=== PATIENT | female | born 1970 | race Hispanic/Latino ===

== ENCOUNTER 2020-09-05 18:29 | Emergency (ER) | payer SELFPAY ==
[2020-09-05] MEDS ORDERED: MORPHINE 4 MG/ML SYR ONE (19:58)
[2020-09-05] MEDS ORDERED: ONDANSETRON 4 MG/2 ML VIAL ONE (19:58)
[2020-09-05] MEDS ORDERED: NA CHLORIDE 0.9% 1,000 ML ONE (19:58)
[2020-09-05 20:08] LABS: Absolute Lymphocytes (CBC) 2.1 K/uL (0.7-4.9); Basophils % 0.7 % (0-1.3); Hematocrit 31.5 % (36.0-45.0); Lymphocytes % 17.7 % (15.3-44.8); MPV 9.2 fL (7.6-11.3); RBC Red Blood Cell Count 3.95 M/uL (3.86-4.86)
[2020-09-05 20:24] LABS: ALT/SGPT 15 U/L (12-78); AST/SGOT 17 U/L (15-37); Albumin 2.3 g/dL (3.4-5.0); Alkaline Phosphatase 104 U/L (45-117); BUN Blood Urea Nitrogen 11 mg/dL (7-18); Bicarbonate 23 mmol/L (21-32); Bilirubin Direct 0.1 mg/dL (0-0.2); Bilirubin Total 0.3 mg/dL (0.2-1.0); Glucose Level 235 mg/dL (74-106); Lipase 116 U/L (73-393); Protein, Total 8.5 g/dL (6.4-8.2); Sodium Level 134 mmol/L (136-145)
--- NOTE | 2020-09-05 21:30 | RAD REPORT ---
EXAM DESCRIPTION: CT - Abdomen Pelvis W Contrast - 09/05/2020 8:45 pm CLINICAL HISTORY: Post operative wound drainage;Abd pain, 1 or 2 abdominal surgical procedure is 4-5 weeks ago, procedure performed not specified COMPARISON: No comparisons TECHNIQUE: Biphasic, helical CT imaging of the abdomen and pelvis was performed following 100 ml non -ionic IV contrast. No oral contrast administered. All CT scans are performed using dose optimization technique as appropriate and may include automated exposure control or mA/KV adjustment according to patient size. FINDINGS: No suspicious findings in the lung bases. The liver, spleen, and pancreas show no suspicious findings. Gallbladder and biliary tree are also wi thout suspicious finding. Symmetric renal function is seen with no hydronephrosis or suspicious renal mass. No pyelonephritis o r acute parenchymal process. Contracted urinary bladder shows no suspicious finding. No adrenal abnor malities. No stomach abnormality. No acute small bowel finding identified. No uterine abnormality. Normal ovaries are difficult to identify due to subsequently detailed finding s. A primary ovarian process is not suspected. The surgical procedure performed is not known. Patient has a mobile cecum which is positioned in the anterior mid abdomen near the umbilicus. In the midline anterior abdominal wall there is an abnormal air in soft tissue collection that extends from the umbilicus inferiorly 8 cm. This is 4 x 2 cm in tr ansverse diameter. The soft tissue attenuation material within this large collection may be stool. Th is is in close proximity to the mobile cecum and there is soft tissue attenuation between this abdomi nal wall abscess collection and the cecum. A fistula tract is suspected. A 2.5 centimeter air and flu id collection is present in the subcutaneous fatty tissues approximately 3 cm inferior to the umbilic us. There is edematous/inflammatory stranding throughout the subcutaneous fatty tissues of the lower abdomen. A 7.5 centimeter diameter thick walled air and fluid collection is present in the left lower quadrant abutting the sigmoid colon. There is pronounced diverticulosis. The sigmoid colon abutting this mass is compressed and displaced anteriorly. Addition to this large air-fluid collection there are severa l additional contained extraluminal air collections anteriorly positioned. This is believed to be a l arge abscess rather than dilated colon. There is soft tissue between this large fluid collection in t he mobile cecum. There may be a posteriorly directed fistula tract as well between the cecum and this collection. No free air is identified. No other abscess collections identified. No mass or bulky lymphadenopathy otherwise noted. No suspicious bony findings. IMPRESSION: An abscess is present in the midline abdominal wall extending from the umbilicus inferio rly. This measures 8 cm CC x 4 cm TR x 2 cm AP appears to contain stool. A large 7.5 centimeter left lower quadrant abscess is present along the superior margin of the sigmoi d colon. The patient has a normal variant mobile cecum configuration. The cecum is in the anterior midline abd omen position between the abdominal wall abscess in the left lower quadrant abscess. There is soft ti ssue attenuation between the cecum and the each abscess collection suspected to be fistula tracts. Patient has prominent sigmoid diverticulosis. The suspected sigmoid abscess is believed to be an infe cted collection rather than dilated bowel. Patient also has a small 2.5 centimeter abscess in the superficial subcutaneous fat in the midline ap proximately 3 cm inferior to the umbilicus. Several small contained extraluminal air collections are present in the peritoneal fat anterior to th e left lower quadrant collection.
[2020-09-05] MEDS ORDERED: NA CHLORIDE 0.9% 250 ML ONE (22:53)
[2020-09-05] MEDS ORDERED: PIPER/TAZO/NS 3.375gm 3.375 GM/100 ML BAG ONE (22:53)
[2020-09-05] MEDS ORDERED: VANCOMYCIN 1 GM/VIAL ONE (22:53)
[2020-09-05 23:28] LABS: Urine Blood Negative (Negative); Urine Glucose Negative (Negative); Urine Protein Negative (Negative); Urine Specific Gravity <=1.005 (1.005-1.030)
--- NOTE | 2020-09-05 23:33 | ER ---
Nurse's Notes [facility] Name: Sabina Garza Age: 50 yrs Sex: Female : 1970 Arrival Date: 09/05/2020 Time: 18:29 Bed 15 Private MD: Diagnosis: Post Surgical Complication, Abdominal Abscess, Fistula Presentation: 09/05 18:37 Chief complaint: Patient states: Had 2 abd surgeries in the past 4-5 weeks. One site to ll1 L side of abdomen never healed. Drains fluid that has a foul odor for at least 3 weeks. Coronavirus screen: Client denies travel out of the [place] in the last 14 days. At this time, the client does not indicate any symptoms associated with coronavirus-19. Ebola Screen: Patient denies travel to an Ebola-affected area in the 21 days before illness onset. Initial Sepsis Screen: Does the patient meet any 2 criteria? HR > 90 bpm. No. Patient's initial sepsis screen is negative. Does the patient have a suspected source of infection? Yes: Acute abdominal pain. Risk Assessment: Do you want to hurt yourself or someone else? Patient reports no desire to harm self or others. Onset of symptoms was August 18, 2020. 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 - Social history:: Smoking status: Patient denies any tobacco usage or history of. Screenin:34 Abuse screen: Denies threats or abuse. Denies injuries from another. Nutritional zb screening: No deficits noted. Tuberculosis screening: No symptoms or risk factors identified. Fall Risk None identified. Assessment: 19:00 General: Appears in no apparent distress. uncomfortable, obese, Behavior is anxious. zb Pain: Complains of pain in umbilical area Pain currently is 0 out of 10 on a pain scale. at worst was 7 out of 10 on a pain scale. Quality of pain is described as sharp, Pain began 1-2 weeks Is intermittent. Neuro: Level of Consciousness is awake, alert, obeys commands, Oriented to person, place, time, situation. Cardiovascular: Heart tones S1 S2 present Patient's skin is warm and dry. Respiratory: Airway is patent Breath sounds are clear bilaterally. GI: Abdomen is obese, discolored, wound noted. Bowel sounds present X 4 quads. Reports lower abdominal pain, cramping, nausea. Derm: Skin is healthy with good turgor, Skin is dry, Skin is normal, Wound noted umbilical area Wound is yellow, malodorous , purulent drainage, tunneling present. Derm: Wound noted. Musculoskeletal: Circulation, motion, and sensation intact. Range of motion: intact in all extremities. 20:00 Reassessment: Patient appears in no apparent distress at this time. Patient and/or zb family updated on plan of care and expected duration. Pain level reassessed. Patient is alert, oriented x 3, equal unlabored respirations, skin warm/dry/pink. 20:43 Reassessment: patent currently in CT. zb 21:20 Reassessment: Patient appears in no apparent distress at this time. Patient and/or zb family updated on plan of care and expected duration. Pain level reassessed. Patient is alert, oriented x 3, equal unlabored respirations, skin warm/dry/pink. wound cleaned. dressing packed wet-dry covered with abd padding. C/D/I. 22:30 Reassessment: Patient appears in no apparent distress at this time. Patient and/or zb family updated on plan of care and expected duration. Pain level reassessed. Patient is alert, oriented x 3, equal unlabored respirations, skin warm/dry/pink. bed clean, patient family member at bedside. 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 09/06 00:55 Reassessment: Patient and/or family updated on plan of care and expected duration. Pain ea level reassessed. Patient is alert, oriented x 3, equal unlabored respirations, skin warm/dry/pink. EMS at facility pt refused transfer reported she wanted to leave AMA and was not going to be transfered. Vital Signs: 09/05 18:37 BP 140 / 89; Pulse 100; Resp 18; Temp 98.9; Pulse Ox 97% ; Weight 108.86 kg; Height 5 ll1 ft. 2 in. (157.48 cm); Pain 5/10; 20:33 BP 126 / 77; Pulse 96; Resp 16; Pulse Ox 97% ; zb 21:30 BP 134 / 53; Pulse 85; Resp 16; Pulse Ox 100% on R/A; zb 22:20 BP 127 / 71; Pulse 90; Resp 16; Pulse Ox 100% on R/A; zb 23:20 BP 140 / 93; Pulse 88; Resp 16; Pulse Ox 100% on R/A; zb 18:37 Body Mass Index 43.90 (108.86 kg, 157.48 cm) ll1 ED Course: 18:29 Patient arrived in ED. am2 18:37 Arm band placed on Patient placed in an exam room, on a stretcher. ll1 18:39 Triage completed. ll1 18:43 Sosa Rizo, DEAN is Primary Nurse. zb 19:01 Roddy Velazco MD is Attending Physician. mh7 20:35 Patient has correct armband on for positive identification. Placed in gown. Bed in low zb position. Call light in reach. phototypesetting equipment monitor on. Pulse ox on. 20:44 CT Abd/Pelvis - IV Contrast Only In Process Unspecified. EDMS 22:19 initiated a transfer with Brenda Kay from [facility]. mw2 22:[address] Millan the hospitalist from [facility]. mw2 23:14 Brenda Kay called back to inform us that we are waiting for a bed assignment. mw2 23:39 administrative approval given by Brenda Kay/ patient has been accepted to [address] bed 529/ Dr. Millan accepted the patient in transfer/ report to be called to [phone]. 09/06 00:56 IV discontinued, intact, bleeding controlled, No redness/swelling at site. Pressure ea dressing applied. Administered Medications: 09/05 19:51 Drug: morphine 4 mg {Note: RASS +0.} Route: IVP; Site: left antecubital; zb 19:51 Drug: Zofran (Ondansetron) 4 mg Route: IVP; Site: left antecubital; zb 19:52 Drug: NS 0.9% 1000 ml Route: IV; Rate: 1000 ml; Site: left antecubital; zb 23:14 Drug: Zosyn (piperacillin-tazobactam) 3.375 grams Route: IVPB; Infused Over: 60 mins; zb Site: left antecubital; Outcome: 23:32 ER care complete, transfer ordered by MD. galan 09/06 00:55 AMA AMA form signed ea Condition: stable 00:56 Patient left the ED. ea Signatures: Dispatcher [employer] EDMS Madison Blanco RN Christine Chaparro Beverley Giordano RN RN ea Westbrook, MyKena 2 Karen Ashley RN RN llRoddy Horton MD MD mh7 Brown, Zipporah, RN RN zb Corrections: (The following items were deleted from the chart) 09/05 23:43 22:[address] Moya the hospitalist from [place] [id number] 09/06 05:45 09/05 22:[address] Millan the hospitalist from [place] [id number]
--- NOTE | 2020-09-05 23:33 | EDPHYS ---
Physician Documentation [facility] Name: Sabina Garza Age: 50 yrs Sex: Female : 1970 Arrival Date: 09/05/2020 Time: 18:29 Bed 15 Private MD: ED Physician Roddy Velazco HPI: 09/05 19:54 This 50 yrs old Female presents to ER via Ambulatory with complaints of Wound mh7 Infection, Wound Check. 19:56 The patient presents with abdominal pain Abdominal surgical site, left of umbilicus mh7 Drainage from abdominal surgical wound. Onset: The symptoms/episode began/occurred 2.5 week(s) ago. The symptoms do not radiate. Associated signs and symptoms: Pertinent positives: nausea, wound drainage, Pertinent negatives: anorexia, blood in stools, chest pain, constipation, diarrhea, dysuria, fever, headache, hematuria, palpitations, shortness of breath, vaginal discharge, vomiting, vomiting blood. The symptoms are described as intermittent, sharp, waxing/waning. Modifying factors: The symptoms are alleviated by nothing, the symptoms are aggravated by touching the area. Severity of pain: At its worst the pain was moderate 7 day(s) ago, in the emergency department the pain is unchanged. The patient has been recently seen by a physician: Saw her surgeon at [facility] last week. 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 - Social history:: Smoking status: Patient denies any tobacco usage or history of. ROS: 19:56 Constitutional: Negative for fever, chills, and weight loss, Eyes: Negative for injury, mh7 pain, redness, and discharge, ENT: Negative for injury, pain, and discharge, Neck: Negative for injury, pain, and swelling, Cardiovascular: Negative for chest pain, palpitations, and edema, Respiratory: Negative for shortness of breath, cough, wheezing, and pleuritic chest pain, Back: Negative for injury and pain, : Negative for injury, bleeding, discharge, and swelling, MS/Extremity: Negative for injury and deformity, Neuro: Negative for headache, weakness, numbness, tingling, and seizure, Psych: Negative for depression, anxiety, suicide ideation, homicidal ideation, and hallucinations, Allergy/Immunology: Negative for hives, rash, and allergies, Endocrine: Negative for neck swelling, polydipsia, polyuria, polyphagia, and marked weight changes, Hematologic/Lymphatic: Negative for swollen nodes, abnormal bleeding, and unusual bruising. Exam: 19:56 Constitutional: This is a well developed, well nourished patient who is awake, alert, mh7 and in no acute distress. Head/Face: Normocephalic, atraumatic. Eyes: Pupils equal round and reactive to light, extra-ocular motions intact. Lids and lashes normal. Conjunctiva and sclera are non-icteric and not injected. Cornea within normal limits. Periorbital areas with no swelling, redness, or edema. Neck: Trachea midline, no thyromegaly or masses palpated, and no cervical lymphadenopathy. Supple, full range of motion without nuchal rigidity, or vertebral point tenderness. No Meningismus. Chest/axilla: Normal chest wall appearance and motion. Nontender with no deformity. No lesions are appreciated. Cardiovascular: Regular rate and rhythm with a normal S1 and S2. No gallops, murmurs, or rubs. Normal PMI, no JVD. No pulse deficits. Respiratory: Lungs have equal breath sounds bilaterally, clear to auscultation and percussion. No rales, rhonchi or wheezes noted. No increased work of breathing, no retractions or nasal flaring. 19:56 Back: No spinal tenderness. No costovertebral tenderness. Full range of motion. MS/ Extremity: Pulses equal, no cyanosis. Neurovascular intact. Full, normal range of motion. Neuro: Awake and alert, GCS 15, oriented to person, place, time, and situation. Cranial nerves II-XII grossly intact. Motor strength 5/5 in all extremities. Sensory grossly intact. Cerebellar exam normal. Normal gait. Psych: Awake, alert, with orientation to person, place and time. Behavior, mood, and affect are within normal limits. 19:56 Abdomen/GI: Inspection: obese scar(s), are noted in the umbilical area, foul smelling yellow drainage from surgical wound site, mild erythema near wound site, Bowel sounds: normal, in all quadrants, Palpation: mild abdominal tenderness, in the umbilical area, mass, is not appreciated, rebound tenderness, is not appreciated, voluntary guarding, is not appreciated, involuntary guarding, is not appreciated, no appreciated organomegaly, Rectal exam: the exam is deferred, because of patient request, Indicators: McBurney's point is not tender, Hurtado's sign is negative, Rovsing's sign is negative, Obturator sign is negative, Psoas sign is negative, Liver: no appreciated palpable abnormalities, Hernia: not appreciated. Vital Signs: 18:37 BP 140 / 89; Pulse 100; Resp 18; Temp 98.9; Pulse Ox 97% ; Weight 108.86 kg; Height 5 ll1 ft. 2 in. (157.48 cm); Pain 5/10; 20:33 BP 126 / 77; Pulse 96; Resp 16; Pulse Ox 97% ; zb 21:30 BP 134 / 53; Pulse 85; Resp 16; Pulse Ox 100% on R/A; zb 22:20 BP 127 / 71; Pulse 90; Resp 16; Pulse Ox 100% on R/A; zb 23:20 BP 140 / 93; Pulse 88; Resp 16; Pulse Ox 100% on R/A; zb 18:37 Body Mass Index 43.90 (108.86 kg, 157.48 cm) ll1 MDM: 23:29 Differential diagnosis: bowel obstruction, diverticulitis, non-specific abd pain, mh7 urinary tract infection, Abdominal Abscess. Data reviewed: vital signs, nurses notes, lab test result(s), CBC, electrolytes, urinalysis, radiologic studies, CT scan. Data interpreted: Pulse oximetry: on room air is 100 %. Interpretation: normal. Counseling: I had a detailed discussion with the patient and/or guardian regarding: the historical points, exam findings, and any diagnostic results supporting the discharge/admit diagnosis, the presence of at least one elevated blood pressure reading (>120/80) during this emergency department visit, lab results, radiology results, the need to transfer to another facility, Patient preference, continuity of care, her surgeon at another hospital. Response to treatment: the patient's symptoms have mildly improved after treatment. 23:32 Patient medically screened. [facility] 09/06 05:11 ED course: Informed by nursing staff that patient refused transfer and left against [facility] medical advice when ambulance arrived to transport her.. 09/05 19:18 Order name: Basic Metabolic Panel [facility] 09/05 19:18 Order name: CBC with Diff [facility] 09/05 19:18 Order name: Hepatic Function [facility] 09/05 19:18 Order name: Lipase; Complete Time: 20:32 [facility] 09/05 19:18 Order name: Blood Culture Adult (2) [facility] 09/05 19:18 Order name: Wound Culture [facility] 09/05 19:18 Order name: Basic Metabolic Panel; Complete Time: 20:32 [facility] 09/05 19:18 Order name: CBC with Automated Diff; Complete Time: 20:14 [facility] 09/05 19:18 Order name: Liver (Hepatic) Function; Complete Time: 20:32 [facility] 09/05 19:26 Order name: Lactate [facility] 09/05 19:26 Order name: Lactate; Complete Time: 20:32 [facility] 09/05 23:28 Order name: Urine Dipstick-Ancillary [facility] 09/05 23:36 Order name: SARS-COV-2 RT PCR [facility] 09/05 19:18 Order name: IV Saline Lock; Complete Time: 19:34 [facility] 09/05 19:18 Order name: Labs collected and sent; Complete Time: 19:34 [facility] 09/05 19:18 Order name: Urine Dipstick-Ancillary (obtain specimen); Complete Time: 23:27 [facility] 09/05 19:18 Order name: CT Abd/Pelvis - IV Contrast Only; Complete Time: 21:40 [facility] Administered Medications: 09/05 19:51 Drug: morphine 4 mg {Note: RASS +0.} Route: IVP; Site: left antecubital; zb 19:51 Drug: Zofran (Ondansetron) 4 mg Route: IVP; Site: left antecubital; zb 19:52 Drug: NS 0.9% 1000 ml Route: IV; Rate: 1000 ml; Site: left antecubital; zb 23:14 Drug: Zosyn (piperacillin-tazobactam) 3.375 grams Route: IVPB; Infused Over: 60 mins; zb Site: left antecubital; Disposition: 09/05/20 23:32 Transfer ordered to Other Acute Care Facility. Diagnosis is Post Surgical Complication, Abdominal Abscess, Fistula. - Reason for transfer: Higher level of care. - Accepting physician is Dr. [facility]. - Condition is Stable. - Problem is an ongoing problem. - Symptoms have improved. Signatures: Dispatcher [employer] EDCO Beverley Johnson RN RN ea Lewis, Lynsay, RN RN 1 Roddy Velazco MD MD 7 Sosa Rizo RN RN zb Corrections: (The following items were deleted from the chart) 22:43 22:14 CORONAVIRUS+MR.LAB.BRZ ordered. [facility] 09/06 00:56 09/05 23:32 09/05/2020 23:32 Transfer ordered to Other Acute Care Facility. Diagnosis ea is Post Surgical Complication, Abdominal Abscess, Fistula. Reason for transfer: Higher level of care. Accepting physician is Dr. Jorge Rodriguezeric [facility]. Condition is Stable. Problem is an ongoing problem. Symptoms have improved. mh7
[2020-09-06] MEDS ORDERED: MORPHINE 4 MG/ML SYR ONE (00:24)
[2020-09-06 01:46] VITALS: O2SAT 100
[2020-09-06 01:49] VITALS: BP 140/93
[2020-09-06 01:50] VITALS: TEMP 98.9
== END 2020-09-06 00:56 ==
LOC: ER 18:29
DX: K63.2 Fistula of intestine (principal); L02.211 Cutaneous abscess of abdominal wall; Z20.822 Contact with and (suspected) exposure to COVID-19; Z88.2 Allergy status to sulfonamides; Z91.018 Allergy to other foods; Z91.048 Other nonmedicinal substance allergy status
CPT/HCPCS: 36415; 74177; 80048; 80076; 81003; 83605; 83690; 85025; 87040; 87070; 87077; 87186; 87205; 96374; 96375; 99284; J2405; J2543; J3370; J7030; J7050; Q9967; U0003